=== PATIENT | female | born 1930 | race Caucasian/White ===

== ENCOUNTER 2017-02-16 10:58 | Emergency (ER) | payer OTHER, MEDICARE ==
[2017-02-16] MEDS ORDERED: ACETAMINOPHEN 325 MG TABLET (FP) PO ONE (11:25)
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
[2017-02-16] MEDS ORDERED: ACETAMINOPHEN 325 MG TABLET (FP) ONE (11:36)
[2017-02-16 11:45] VITALS: TEMP 98.6; BMI 26.0
[2017-02-16 13:20] VITALS: BP 155/82; PULSE 81
--- NOTE | 2017-02-21 11:22 | EKG ---
Test Reason : Blood Pressure : / mmHG Vent. Rate : 080 BPM Atrial Rate : 080 BPM P-R Int : 220 ms QRS Dur : 138 ms QT Int : 428 ms P-R-T Axes : 040 -78 077 degrees QTc Int : 493 ms SINUS RHYTHM WITH 1ST DEGREE A-V BLOCK POSSIBLE LEFT ATRIAL ENLARGEMENT LEFT AXIS DEVIATION RIGHT BUNDLE BRANCH BLOCK SEPTAL INFARCT , AGE UNDETERMINED ABNORMAL ECG NO PREVIOUS ECGS AVAILABLE Confirmed by HAFSA FERNANDES, AUGUSTO ([id number]) on 02/21/2017 11:22:28 AM Referred By: Confirmed By:AUGUSTO PEREYRA MD
== END 2017-02-16 13:20 | disposition home or self-care (01) ==
LOC: JER 10:58
DX: M25.552 Pain in left hip (principal); W03.XXXA Other fall on same level due to collision with another person, initial encounter; Y93.89 Activity, other specified; Y92.513 Shop (commercial) as the place of occurrence of the external cause; Y99.8 Other external cause status; I10 Essential (primary) hypertension; E78.5 Hyperlipidemia, unspecified; E78.00 Pure hypercholesterolemia, unspecified; J45.909 Unspecified asthma, uncomplicated
CPT/HCPCS: 73523-TC; 93005; 93010; 99284-25